=== PATIENT | male | born 1960 | race Caucasian/White ===

== ENCOUNTER → 2017-08-03 | Outpatient (CLI) | payer BC ==
[2015-10-22 16:58] VITALS: BP 138/91
[~2017-08-03] MED LIST: B COMPLEX1 TA2 PO; CARDI-OMEGA1000 MG PO; D-1000 185 MG-11 TAB PO; GOOD SENSE ASPI81 M1 PO; LAMISIL250 MG PO; LOTRISONE15 GM TOP; MULTI VITAMINS1 TAB PO; NORCO 325 MG-51 TA1 PO; SYNTHROID0.2 MG/TAB PO; VITAMIN C500 MG PO; VITAMIN E 400 U4001 PO; ZESTRIL40 MG PO
== END ==
LOC: RAD 10:39
DX: M25.561 Pain in right knee (principal)

== ENCOUNTER → 2018-12-28 | Day surgery (SDC) | payer OTHER ==
[2015-10-22 16:58] VITALS: BP 138/91
== END ==
LOC: MSO 08:35
DX: Z12.11 Encounter for screening for malignant neoplasm of colon (principal); Z86.010 Personal history of colon polyps; Z85.850 Personal history of malignant neoplasm of thyroid; D12.7 Benign neoplasm of rectosigmoid junction; D12.0 Benign neoplasm of cecum; Z79.899 Other long term (current) drug therapy; I10 Essential (primary) hypertension; Z79.82 Long term (current) use of aspirin; E66.01 Morbid (severe) obesity due to excess calories; E89.0 Postprocedural hypothyroidism; Z92.3 Personal history of irradiation
CPT/HCPCS: 00811; J2704; J3010; J7120